=== PATIENT | female | born 1940 | race Caucasian/White ===

== ENCOUNTER 2022-11-10 12:14 | Emergency (ER) | payer OTHER ==
[~2022-11-10] VITALS: Ht 157.5 cm; Wt 170.0 kg
[2022-11-10] MEDS ORDERED: cloNIDine HCL 0.1 MG TAB PO ONE (12:45)
[2022-11-10 13:37] LABS: Basophils # (auto) 0.1 10 ^3/uL (0-0.2); Basophils % (auto) 0.8 % (0.0-2.0); Eosinophils # (auto) 0.3 10 ^3/uL (0-0.8); Eosinophils % (auto) 3.5 % (0.0-7.0); Hematocrit 31.4 % (36.0-46.0); Hemoglobin 10.3 g/dL (12.2-16.2); Lymphocytes # (auto) 1.7 10 ^3/uL (0.4-5.4); Lymphocytes % (auto) 16.7 % (10.0-50.0); Mean Corpuscular Hemoglobin 32.6 pg (28.0-32.0); Monocytes # (auto) 0.6 10 ^3/uL (0-1.3); Monocytes % (auto) 5.7 % (0.0-12.0); Neutrophils # (auto) 7.3 10 ^3/uL (1.6-8.6); Neutrophils % (auto) 73.3 % (37.0-80.0); Nucleated Red Blood Cells % 0.1 %; Red Blood Cells 3.17 10^6/uL (4.0-5.20)
[2022-11-10 14:10] LABS: Calcium 8.9 mg/dL (8.5-10.1); Potassium 4.8 mmol/L (3.5-5.1)
[2022-11-10 14:16] LABS: Albumin 3.3 g/dL (3.4-5.0); BUN/Creatinine Ratio 27.5 (10.0-20.0); Bilirubin, Total 0.6 mg/dL (0.2-1.0); Total Protein 6.7 g/dL (6.4-8.2)
[2022-11-10 14:19] LABS: Urine Bacteria NONE SEEN /hpf (None Seen); Urine Blood Negative /uL (Negative); Urine Specific Gravity 1.006 (1.001-1.035); Urine WBC 1 /hpf (0 - 5)
[2022-11-10 16:05] VITALS: BP 176/49
== END 2022-11-10 16:06 | disposition home or self-care (01) ==
LOC: ER 12:14 → EDBD 12:14 → ER 16:06
DX: I10 Essential (primary) hypertension (principal); J45.909 Unspecified asthma, uncomplicated; Z98.890 Other specified postprocedural states
CPT/HCPCS: 36415; 80053; 81001; 84484; 85025; 93005

== ENCOUNTER 2024-11-19 09:02 | Emergency (ER) | payer OTHER, MEDICAID ==
[~2024-11-19] VITALS: Ht 157.5 cm; Wt 54.4 kg
--- NOTE | 2024-11-19 09:45 | ED.PDOC ---
History of Present Illness HPI Comments 84-year-old female presents here episode of acute confusion that occurred prior to arrival. Family states she left the patient for proximally 6 minutes to dry her hair while she showered. When she returned she found her mother confused, not following commands, spraying water to her chest. When she took albuterol inhaler she noticed air puffing out to her right cheek which she states normally she holds a tight seal. Patient states this is very abnormal for the patient. This all occurred 3 minutes. At this time patient is back to normal self. No complaints at this time. No recent fever chills nausea. She had 1 episode of vomiting few days ago. No further symptoms. Chief Complaint: General Weakness Time Seen by MD: 09:11 Allergies: Coded Allergies: NO KNOWN ALLERGIES (Unverified , 11/10/22) Mode of Arrival: Wheelchair Past Medical History PAST MEDICAL HISTORY: Anemia, Arthritis, Asthma, HTN Surgical History: Unknown PRECISION ASSEMBLER History: Denies all PRECISION ASSEMBLER Hx Family History Family History: Unknown Social History Smoker: Non-Smoker Alcohol: Denies ETOH Use Drugs: Denies Drug Use Lives In: Home All Other Systems: Reviewed and Negative Physical Exam General Appearance: No Apparent Distress, Normal, Thin, Other (Sitting in wheelchair, dialysis catheter to right chest wall.) HEENT: Normal ENT Inspection, Pharynx Normal, TMs Normal Neck: Full Range of Motion, Non-Tender, Normal, Normal Inspection Respiratory: Chest Non-Tender, Lungs Clear, No Accessory Muscle Use, No Respiratory Distress, Normal Breath Sounds Cardiovascular: No Edema, No JVD, No Murmur, No Gallop, Normal Peripheral Pulses, Regular Rate/Rhythm Breast Exam: Deferred Gastrointestinal: No Organomegaly, Non Tender, No Pulsatile Mass, Normal Bowel Sounds, Soft Genitalia: Deferred Pelvic: Deferred Rectal: Deferred Extremities: No calf tenderness, Normal capillary refill, Normal inspection, Normal range of motion, Non-tender, No pedal edema Musculoskeletal : Apperance: Normal Neurologic: Alert, big data solutions architect II-XII nml as Tested, No Motor Deficits, Normal Affect, Normal Mood, No Sensory Deficits, Other (4/5 strength to bilateral upper and lower extremities. No facial droop no slurred speech.) Cerebellar Function: Normal Reflexes: Normal Skin: Dry, Normal Color, Warm Lymphatic: No Adenopathy Was a procedure done? Was a procedure done?: No EKG EKG : Comments Sinus rhythm rate of 66, no significant ST changes Differential Dx Considerations may include: TIA, stroke, UTI, NSTEMI, generalized weakness, dehydration, electrolyte abnormality, pneumonia, fluid overload, uremia X-Ray, Labs, Meds, VS Vital Signs Date Time Temp Pulse Resp B/P (MAP) Pulse Ox O2 Delivery O2 Flow Rate FiO2 11/19/24 11:09 97.9 62 19 152/47 (82) 98 97.9 11/19/24 09:32 98.8 68 18 154/66 (95) 98 98.8 11/19/24 09:14 66 Lab Test 11/19/24 11:41 11/19/24 10:35 11/19/24 09:11 Range/Units Troponin I High Sensitivity 63 *H 67 *H </=34 ng/L White Blood Count 8.8 4.4-10.8 10^3/uL Red Blood Count 2.90 L 4.0-5.20 10^6/uL Hemoglobin 8.5 L 12.2-16.2 g/dL Hematocrit 26.6 L 36.0-46.0 % Mean Corpuscular Volume 91.8 80.0-100.0 fL Mean Corpuscular Hemoglobin 29.3 28.0-32.0 pg Mean Corpuscular Hemoglobin Concent 32.0 32.0-36.0 g/dL Red Cell Distribution Width 25.5 H 11.8-14.3 % Platelet Count 316 140-450 10^3/uL Mean Platelet Volume 6.7 L 6.9-10.8 fL Neutrophils (%) (Auto) 74.7 37.0-80.0 % Lymphocytes (%) (Auto) 13.1 10.0-50.0 % Monocytes (%) (Auto) 8.8 0.0-12.0 % Eosinophils (%) (Auto) 2.6 0.0-7.0 % Basophils (%) (Auto) 0.8 0.0-2.0 % Neutrophils # (Auto) 6.5 1.6-8.6 10 ^3/uL Lymphocytes # (Auto) 1.1 0.4-5.4 10 ^3/uL Monocytes # (Auto) 0.8 0-1.3 10 ^3/uL Eosinophils # (Auto) 0.2 0-0.8 10 ^3/uL Basophils # (Auto) 0.1 0-0.2 10 ^3/uL Nucleated Red Blood Cells 0.4 % Platelet Estimate Adequate Anisocytosis (manual) Slight Ovalocytes Few Sodium Level 136 136-145 mmol/L Potassium Level 4.2 3.5-5.1 mmol/L Chloride Level 98 98-107 mmol/L Carbon Dioxide Level 29 20-31 mmol/L Anion Gap 9 5-15 Blood Urea Nitrogen 35 H 9-23 mg/dL Creatinine 3.73 H 0.550-1.02 mg/dL Glomerular Filtration Rate Calc 12 >90 mL/min BUN/Creatinine Ratio 9.4 L 10.0-20.0 Serum Glucose 123 H 74-106 mg/dL Calcium Level 8.8 8.7-10.4 mg/dL POC Glucose 122 H 70-106 mg/dl DIAGNOSTIC IMAGING Diagnostic Imaging Report : [id number] Signed PATIENT: PENNY GALVAN ACCT: [id number] UNIT: [id number] : 1940 LOC: ER ROOM / BED: / AGE / SEX: 84 / F ADM STATUS: REG ER SERVICE 1001 ORDERING PHYSICIAN: TIFFANIE CORONEL MD PROCEDURE(s): HWOCT - HEAD WITHOUT CONTRAST REASON: Episode of confusion, TIA/stroke ORDER NUMBER(s): [id number], ACCESSION NUMBER(s): [id number] EXAM DESCRIPTION: CT HEAD WITHOUT CONTRAST CLINICAL HISTORY: Episode of confusion, TIA/stroke COMPARISON: None TECHNIQUE: Noncontrast CT head was performed. Coronal MPR images were generated. CTDI/ DLP = 53.9 / 954.55. Dose reduction technique with one or more of the following methods was performed: Automated exposure control, adjustment of the mA and/or kV according to patient size, use of iterative reconstruction [place]. FINDINGS: No evidence of acute intracranial hemorrhage. No mass effect. No extra-axial collections of fluid or blood. Small hypoattenuating foci in the bilateral basal ganglia Mildly enlarged ventricles and sulci, suggesting mild global volume loss. Clear basal cisterns. The calvarium is intact. The soft tissues are unremarkable. The paranasal sinuses and mastoid air cells are clear. IMPRESSION: Small hypoattenuating foci in the bilateral basal ganglia, suggesting age- determinant infarcts. Recommend further evaluation with MRI brain without IV contrast ATED BY: JAIMIE MENDOZA MD DICTATED DATE/TIME: 11/19/241106 SIGNED BY: JAIMIE MENDOZA MD SIGNED DATE/TIME: 11/19/241106 CC: [place] [id number] Ph: [phone] DIAGNOSTIC IMAGING Diagnostic Imaging Report : [id number] Signed PATIENT: PENNY GALVAN ACCT: [id number] UNIT: [id number] : 1940 LOC: ER ROOM / BED: / AGE / SEX: 84 / F ADM STATUS: REG ER SERVICE 100 ORDERING PHYSICIAN: TIFFANIE CORONEL MD PROCEDURE(s): CXR2 - CHEST TWO VIEWS ROUTINE REASON: Rule out pneumonia ORDER NUMBER(s): [id number], ACCESSION NUMBER(s): [id number] CHEST RADIOGRAPH Indication: Rule out pneumonia Technique: 2 views chest COMPARISON: None FINDINGS: Right IJ catheter tip projects over the SVC. The cardiac silhouette is enlarged. The lungs demonstrate bilateral patchy ai rspace opacities. The pulmonary vasculature is prominent. Moderate bilateral pleural effusions.. There is no pneumothorax. Aortic atherosclerotic disease. IMPRESSION: Cardiomegaly with pulmonary vascular congestion and bilateral patchy airspace opacities. Moderate bilateral pleural effusions. ATED BY: HANY WHEAT MD DICTATED DATE/TIME: 11/19/24 1031 SIGNED BY: HANY WHEAT MD SIGNED DATE/TIME: 11/19/24 1031 CC: 84-year-old female here with episode of acute confusion. Differential includes uremia, TIA, stroke, UTI, NSTEMI. CBC, BMP, troponin, urinalysis, chest x-ray and CT scan of the brain has been ordered. CT of the brain demonstrates small hypoattenuating foci which could determine indeterminate infarcts. Recommend MRI. Blood work demonstrates evidence of anemia of 8.5, elevated BUN creatinine consistent with end-stage renal disease, elevated troponin at 67 on repeat at 63. Chest x-ray demonstrates bilateral pleural effusions. Patient does not report shortness of breath. EKG with sinus rhythm with no significant ST changes. At this time suspect possible TIA. [facility] who has accepted the patient. Case #[id number]. Patient has been given aspirin in the ER. Previous hemoglobin was 6.5 last month per her. Patient has been given aspirin 162 mg here in the ER. Time of 1ST Reevaluation: 09:56 Reevaluation 1ST: Unchanged Patient Education/Counseling: Diagnosis, Treatment, Prognosis Family Education/Counseling: Diagnosis, Treatment, Prognosis SEPSIS Sepsis Screen Date sepsis recognized/suspect: Nov 19, 2024 Time Sepsis recognized/suspect: 907 Recent Procedure: No On Antibiotic Therapy: No Respiratory Rate >20: No Heart Rate >90: No Temp<36 C (96.8 F) or >38.3 C: No SBP <90 or MAP <65 mmHG: No New Acute Mental Status Change: No Is the patient on CPAP, BIPAP,: No Physician Orders Chest Two Views Routine (11/19/24 10:01) Urinalysis (11/19/24 10:01) Head Without Contrast (11/19/24 10:01) Vital Signs Date Time Temp Pulse Resp B/P (MAP) Pulse Ox O2 Delivery O2 Flow Rate FiO2 11/19/24 11:09 97.9 62 19 152/47 (82) 98 97.9 11/19/24 09:32 98.8 68 18 154/66 (95) 98 98.8 11/19/24 09:14 66 Laboratory Tests Test 11/19/24 10:35 White Blood Count 8.8 10^3/uL (4.4-10.8) Departure 1 Departure Time of Disposition: 14:54 Impression: Primary Impression: TIA (transient ischemic attack) Additional Impressions: Chronic anemia ESRD (end stage renal disease) Elevated troponin Pleural effusion Disposition: 02 SHORT TERM HOSPITAL Condition: Fair Critical Care Note Critical Care Time?: No Stability Stability form required: Yes Stable for transfer: Authorized admission Heart Score Heart Score: Heart Score Response (Comments) Value History N/A 0 EKG N/A 0 Age N/A 0 Risk Factors N/A 0 Troponin N/A 0 Total 0 TIFFANIE CORONEL MD Nov 19, 2024 09:45
--- NOTE | 2024-11-19 09:46 | ECG ---
[facility] Test Date: 2024-11-19 Test Time: 09:14:42 Pat Name: PENNY GALVAN Department: ER Room: Gender: F Bibliographic Services Specialist: PRAVIN : 1940 Requested By: TIFFANIE CORONEL Order Number: [id number] Reading MD: Dereck Gabriel Measurements Intervals [place] Rate: 66 P: 44 IN: 149 QRS: 33 QRSD: 85 T: 29 QT: 436 QTc: 457 Interpretive Statements Sinus rhythm Electronically Signed On 11-21-2024 19:25:54 PDT by Dereck Gabriel Please click the below link to view image of tracing.
--- NOTE | 2024-11-19 10:33 | DVH ---
CHEST RADIOGRAPH Indication: Rule out pneumonia Technique: 2 views chest COMPARISON: None FINDINGS: Right IJ catheter tip projects over the SVC. The cardiac silhouette is enlarged. The lungs demonstrate bilateral patchy airspace opacities. The pu lmonary vasculature is prominent. Moderate bilateral pleural effusions.. There is no pneumothorax. Ao rtic atherosclerotic disease. IMPRESSION: Cardiomegaly with pulmonary vascular congestion and bilateral patchy airspace opacities. Moderate bilateral pleural effusions.
[2024-11-19 10:47] LABS: Hematocrit 26.6 % (36.0-46.0); Hemoglobin 8.5 g/dL (12.2-16.2); Mean Corpuscular Hemoglobin 29.3 pg (28.0-32.0); Mean Corpuscular Volume 91.8 fL (80.0-100.0); Nucleated Red Blood Cells % 0.4 %
[2024-11-19 10:59] LABS: Chloride 98 mmol/L (98-107); Potassium 4.2 mmol/L (3.5-5.1); Sodium 136 mmol/L (136-145)
[2024-11-19 11:00] LABS: Anion Gap 9 (5-15); Calcium 8.8 mg/dL (8.7-10.4); Carbon Dioxide 29 mmol/L (20-31)
[2024-11-19 11:05] LABS: BUN/Creatinine Ratio 9.4 (10.0-20.0)
[2024-11-19 11:06] LABS: Blood Urea Nitrogen 35 mg/dL (9-23); Glucose 123 mg/dL (74-106)
[2024-11-19 11:09] VITALS: BP 152/47; PULSE 62; RESP 19; TEMP 97.9; O2SAT 98
--- NOTE | 2024-11-19 11:09 | DVH ---
EXAM DESCRIPTION: CT HEAD WITHOUT CONTRAST CLINICAL HISTORY: Episode of confusion, TIA/stroke COMPARISON: None TECHNIQUE: Noncontrast CT head was performed. Coronal MPR images were generated. CTDI/ DLP = 53.9 / 954.55. Dose reduction technique with one or more of the following methods was performed: Automated exposure control, adjustment of the mA and/or kV according to patient size, use of iterative reconstruction [place]. FINDINGS: No evidence of acute intracranial hemorrhage. No mass effect. No extra-axial collections of fluid or blood. Small hypoattenuating foci in the bilateral basal ganglia Mildly enlarged ventricles and sulci, suggesting mild global volume loss. Clear basal cisterns. The calvarium is intact. The soft tissues are unremarkable. The paranasal sinuses and mastoid air cells are clear. IMPRESSION: Small hypoattenuating foci in the bilateral basal ganglia, suggesting age-determinant infarcts. Recom mend further evaluation with MRI brain without IV contrast
[2024-11-19 11:21] LABS: Anisocytosis Slight; Ovalocytes FEW
== END 2024-11-19 15:48 | disposition left against medical advice (07) ==
LOC: ER 09:02
DX: G45.9 Transient cerebral ischemic attack, unspecified (principal); D64.9 Anemia, unspecified; I12.0 Hypertensive chronic kidney disease with stage 5 chronic kidney disease or end stage renal disease; N18.6 End stage renal disease; J45.909 Unspecified asthma, uncomplicated; M19.90 Unspecified osteoarthritis, unspecified site; Z79.899 Other long term (current) drug therapy; J90 Pleural effusion, not elsewhere classified
CPT/HCPCS: 36415; 70450; 71046; 80048; 82947; 82962; 84484; 85025; 93005